=== PATIENT | female | born 1980 | race Caucasian/White ===

== ENCOUNTER 2019-07-17 16:51 | Observation (INO) | payer MEDICAID ==
[~2019-07-17] VITALS: Ht 160 cm; Wt 73.5 kg
[2019-07-17] MEDS ORDERED: OSEL75CA17 MT (17:40)
[2019-07-17] MEDS ORDERED: PROG100C10 PO (17:40)
[2019-07-17] MEDS ORDERED: LACTATED RINGERS 1,000 ML IV SCH (17:45)
[2019-07-17] MEDS ORDERED: [UNRECOGNIZED DRUG - OTHER] PO (21:18)
== END 2019-07-17 21:45 | disposition home or self-care (01) ==
LOC: 8 EST LDRP 16:51
PROVIDERS: ADMIT Specialist; ATTEND Specialist
DX: O46.92 Antepartum hemorrhage, unspecified, second trimester (principal); Z3A.22 22 weeks gestation of pregnancy
CPT/HCPCS: 76805; 96360; 96361; 99281; G0378